=== PATIENT | male | born 1965 | race Caucasian/White ===

== ENCOUNTER → 2017-09-26 | Outpatient (CLI) | payer BC ==
--- NOTE | 2017-09-26 11:38 | PN ---
PROGRESS NOTE DATE OF SERVICE: 09/26/2017 A 52-year-old gentleman who has been [facility] in [facility] for treatment of severe obstructive sleep apnea-hypopnea syndrome. Patient successfully continued to use his CPAP equipment with full-face mask, use it every night without problems. No snoring with the machine. [place] Sleepiness Scale is 10. MEDICATIONS: Metformin, lisinopril, hydrochlorothiazide, Bydureon injections for diabetes. I checked the patient's CPAP unit, usage 29/30 nights for the last month, more than 4 hours. Average usage is 5.2 hours. CPAP pressure is 12 cm of water. Leak is up to 32 L/minute. Apnea-hypopnea index is only 0.9, which is in perfect range. PHYSICAL EXAM: Patient in no distress. BP 132/93, HR 85, RR 16, height 71-1/2, weight 301.6, temperature 97.7, BMI 41.3, oxygen saturation at room air 97%. Patient has about the same weight as one year ago. OROPHARYNX: Extremely low position of soft palate. Neck Supple, no JVD. Thyroid is not palpable. LUNGS Clear to percussion and to auscultation. Good air exchange. No wheezing or rhonchi. HEART S1, S2 regular. No murmurs, gallops, or rubs. EXTREMITIES No clubbing or cyanosis. 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 Cranial nerves 2 to 7 intact. There is no fasciculation or atrophy. noted. No focal deficits observed. IMPRESSION: 1. Severe obstructive sleep apnea-hypopnea syndrome, apnea-hypopnea index of 47.9, on full control with CPAP at 15 cm of water. Patient demonstrated good compliance with treatment, benefitting from treatment. 2. Obesity. 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 4. Hypertension. 5. Diabetes. 6. Status post vasectomy. PLAN: 1. Continue treatment with CPAP every night. 2. Losing weight. 3. Sleep hygiene with regular time in bed for at least 8 hours. 4. No driving if feeling any sleepiness. 5. Prescription for all necessary CPAP supplies including mask, tube, filters. Patient has to replace his mask. Thank you very much for allowing me to participate in the management of your patient. Sincerely, Kenneth Guerra MD, PhD, FAASM Diplomat of [place] [place] [employer] Facilities Project Manager of [facility] [place] [id number] / KALLIN: [phone] /
== END ==
LOC: SLEEP 10:01
PROVIDERS: ATTEND Internal Medicine
DX: G47.33 Obstructive sleep apnea (adult) (pediatric) (principal); E66.9 Obesity, unspecified; I10 Essential (primary) hypertension; E11.9 Type 2 diabetes mellitus without complications; Z98.52 Vasectomy status; Z79.899 Other long term (current) drug therapy; Z79.84 Long term (current) use of oral hypoglycemic drugs

== ENCOUNTER 2018-08-27 20:09 | Emergency (ER) | payer BC ==
[2018-08-27 20:36] VITALS: BP 141/91; PULSE 95; RESP 18; TEMP 98.7
--- NOTE | 2018-08-27 21:55 | ED ---
Back Pain HPI - General Source: patient, RN notes reviewed Mode of arrival: ambulatory Limitations: no limitations <Colleen Mullen - Last Filed: 08/27/18 22:17> <Anastacia Issa - Last Filed: 08/27/18 23:17> - General Chief Complaint: Back Pain/Injury Stated Complaint: back & leg pain Time Seen by Provider: 08/27/18 20:52 - History of Present Illness Initial Comments: This is a 52-year-old male who presents to the emergency department with chief complaint of low back pain. Patient states that 3 weeks ago he felt a "twinge" in his right lower back. He states that the pain has progressively worsened and he is experiencing sharp shooting pain down the right anterior thigh to his foot. He states he believes it is his sciatica flaring up. He was evaluated at a walk-in clinic and was started on a Medrol dosepak approximately 2-3 weeks ago. Patient reports following up at an urgent care yesterday and was prescribed ibuprofen and [place]. He reports the pain medication has not relieved his pain. X-rays were performed yesterday and no abnormalities were demonstrated. He states today the pain has been ranging from 8/10-10/10. He states the only relief he receives is when he lies on his back. States he does have an appointment with [facility] scheduled for Sunday. Denies saddle paresthesias or loss of bladder or bowel function. Denies falls, injuries or trauma. Denies recent fevers or chills, chest pain or shortness breath, abdominal pain, nausea or vomiting. (Colleen Mullen) - Related Data Home Medications Medication Instructions Recorded Confirmed Exenatide Microspheres [Bydureon] 2 mg SQ FR 08/27/18 08/27/18 HYDROcodone/APAP 5-325MG [[place] 1 tab PO Q6HR PRN 08/27/18 08/27/18 5-325] Hydrochlorothiazide [Hydrodiuril] 25 mg PO DAILY 08/27/18 08/27/18 Ibuprofen [Motrin] 800 mg PO TID PRN 08/27/18 08/27/18 Lisinopril [Zestril] 20 mg PO DAILY 08/27/18 08/27/18 PARoxetine [Paxil] 10 mg PO DAILY 08/27/18 08/27/18 metFORMIN HCL [Glucophage] 500 mg PO BID 08/27/18 08/27/18 Allergies Allergy/AdvReac Type Severity Reaction Status Date / Time No Known Allergies Allergy Verified 08/27/18 21:00 Review of Systems ROS Other: All systems not noted in ROS Statement are negative. <Colleen Mullen - Last Filed: 08/27/18 22:17> ROS Other: All systems not noted in ROS Statement are negative. <Anastacia Issa - Last Filed: 08/27/18 23:17> ROS Statement: Those systems with pertinent positive or pertinent negative responses have been documented in the HPI. Past Medical History Past Medical History: Diabetes Mellitus, Hypertension History of Any Multi-Drug Resistant Organisms: None Reported Past Surgical History: Tonsillectomy Additional Past Surgical History / Comment(s): vasectomy, Past Psychological History: No Psychological Hx Reported Smoking Status: Former smoker Past Alcohol Use History: Rare Past Drug Use History: None Reported <Colleen Mullen - Last Filed: 08/27/18 22:17> General Exam Limitations: no limitations Back exam: Present: normal inspection, full ROM, tenderness (Tenderness on palpation of right SI joint.). Absent: paraspinal tenderness, vertebral tenderness <Colleen Mullen - Last Filed: 08/27/18 22:17> <Anastacia Issa - Last Filed: 08/27/18 23:17> - General Exam Comments Initial Comments: General: Awake and alert, well-developed; in no apparent distress. Lying comfortably on ED stretcher. HEENT: Head atraumatic, normocephalic. Pupils are equal, round and reactive to light. Extraocular movements intact. Oropharynx moist without erythema or exudate. Neck: Supple. Normal ROM. Cardiovascular: Regular rate and rhythm. No murmurs, rubs or gallops. Chest symmetrical. Respiratory: Lungs clear to auscultation bilaterally. No wheezes, rales or rhonchi. Normal respiratory effort with no use of accessory muscles. Musculoskeletal: Normal ROM, no tenderness bilateral upper and lower extremities. Ambulating normally. Skin: [place], warm and dry without rashes or lesions. Neurological: Alert and oriented x3. CN II-XII grossly intact. Speech is fluent and answers are appropriate. No focal neuro deficits. Psychiatric: Normal mood and affect. No overt signs of depression or anxiety noted. (Colleen Mullen) Vital Signs 08/27/18 20:32 Temperature 98.7 F Pulse Rate 95 Respiratory 18 Rate Blood Pressure 141/91 O2 Sat by Pulse 100 Oximetry Medical Decision Making <Colleen Mullen - Last Filed: 08/27/18 22:17> <Anastacia Issa - Last Filed: 08/27/18 23:17> - Medical Decision Making This is a 52-year-old male who presents to the emergency department with chief complaint of right low back pain. Patient reports a history of sciatica. He states for the past 3 weeks he has had progressive worsening of right low back pain with radiation down the right leg. Patient states he has been on a Medrol Dosepak, has had a cortisone injection and is now taking [place] and ibuprofen. Patient reports no improvement in symptoms. He reports x-rays were obtained yesterday which revealed no acute abnormalities. He denies any falls, injuries or trauma. On physical examination, there is tenderness to the right SI joint. He is neurovascularly intact. He is ambulating normally. Case was discussed with attending physician, Dr. Issa. No additional treatment is warranted at this time as patient was recently on a course of steroids and is already prescribed narcotics and an anti-inflammatory. Patient is instructed to follow up with [facility] on Sunday as scheduled. His vital signs have been stable and he is in no acute distress. He'll be discharged home at this time. He is in agreement and voices understanding. All questions were answered. (Colleen Mullen) I was available for consultation in the emergency department. The history and physical exam were done by the midlevel provider. I was consulted for this patient's care. I reviewed the case with the midlevel provider and based on their presentation of the patient, I agree with the assessment, medical decision making and plan of care as documented. (Anastacia Issa) Disposition Is patient prescribed a controlled substance at d/c from ED?: No Time of Disposition: 21:56 <Colleen Mullen - Last Filed: 08/27/18 22:17> <Anastacia Issa - Last Filed: 08/27/18 23:17> Clinical Impression: Lumbar radiculopathy Disposition: HOME SELF-CARE Condition: Good Instructions: Lumbar Radiculopathy (ED) Additional Instructions: Please follow-up with [facility] as scheduled. Please follow up with primary care provider within 1-2 days. Return to emergency department if symptoms should worsen or any concerns arise. Referrals: Chance Umana DO [Primary Care Provider] - 1-2 days
== END 2018-08-27 22:00 | disposition home or self-care (01) ==
LOC: EC 20:09
DX: M54.16 Radiculopathy, lumbar region (principal); M54.41 Lumbago with sciatica, right side; E11.9 Type 2 diabetes mellitus without complications; I10 Essential (primary) hypertension; Z87.891 Personal history of nicotine dependence; Z79.84 Long term (current) use of oral hypoglycemic drugs; Z79.899 Other long term (current) drug therapy
CPT/HCPCS: 99283

== ENCOUNTER → 2018-10-30 | Outpatient (CLI) | payer BC ==
--- NOTE | 2018-10-30 18:38 | PN ---
PROGRESS NOTE DATE OF SERVICE: 10/30/2018 53-year-old gentleman who has been followed in [facility] for treatment of obstructive sleep apnea-hypopnea syndrome. Patient successfully continued to use his CPAP unit without any problems. No snoring with his machine according to his . [place] Sleepiness Scale is 10. I checked CPAP unit. CPAP pressure is 12 cm of water. Usage is 22 out of 30 nights for more than 4 hours, which is normal compliance. Average usage is 4.7 hours. Otherwise, patient using machine every night 30 out of 30 nights. Leak is 34 L/minute which is borderline. Apnea-hypopnea index only 1.8, which is absolutely normal range. CURRENT MEDICATIONS: Metformin, lisinopril, hydrochlorothiazide, injections for diabetes. PHYSICAL EXAM: Patient in no distress. BP 133/80, HR 110, RR 18, height 71.5, weight 283.0, body mass index 38.9. The patient has lost 18 pounds since previous visit. Oropharynx extremely low position of soft palate. ABDOMEN: Obese. Neck Supple, no JVD. Thyroid is not palpable. LUNGS Clear to percussion and to auscultation. Good air exchange. No wheezing or rhonchi. HEART S1, S2 regular. No murmurs, gallops, or rubs. ABDOMEN: Obese. Soft and nontender. Bowel sounds are present. No organomegaly appreciated. EXTREMITIES No clubbing or cyanosis. 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 Cranial nerves 2 to 7 intact. There is no fasciculation or atrophy. noted. No focal deficits observed. IMPRESSION: 1. Obstructive sleep apnea-hypopnea syndrome. Full control with CPAP. Patient demonstrated great compliance with treatment benefitting from treatment. 2. Obesity, patient lost 13 pounds since previous visit. 3. Hypertension. 4. Diabetes mellitus. 5. 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 PLAN: 1. Continue treatment with CPAP every night. 2. Losing weight. 3. Sleep hygiene with regular time in bed for at least 8 hours. 4. No driving if feeling sleepiness. 5. We will maintain all necessary prescriptions for CPAP supplies including mask, tube, filters. Thank you very much for allowing me to participate in management of your patient. Sincerely, Kenneth Guerra MD, PhD, FAASM Diplomat of [place] [employer] Welder Apprentice [employer] of [facility] [place] MMODL / KALLIN: [phone] /
== END | disposition home or self-care (01) ==
LOC: SLEEP 16:50
PROVIDERS: ATTEND Internal Medicine
DX: G47.33 Obstructive sleep apnea (adult) (pediatric) (principal); I10 Essential (primary) hypertension; E11.9 Type 2 diabetes mellitus without complications; E66.9 Obesity, unspecified; Z68.38 Body mass index [BMI] 38.0-38.9, adult; Z99.89 Dependence on other enabling machines and devices; Z79.84 Long term (current) use of oral hypoglycemic drugs; Z79.899 Other long term (current) drug therapy

== ENCOUNTER → 2018-11-27 | Outpatient (CLI) | payer BC ==
[2018-11-27 11:49] LABS: Appearance,Urine Clear (Clear); Bilirubin,Urine Negative (Negative); Blood,Urine Negative (Negative); Color,Urine Yellow; Glucose,Urine (UA) Negative (Negative); Ketones,Urine Negative (Negative); Leukocyte Esterase,Urine Negative (Negative); Nitrite,Urine Negative (Negative); Protein,Urine Negative (Negative); Specific Gravity,Urine 1.015 (1.001-1.035); Urobilinogen,Urine <2.0 mg/dL (<2.0)
== END ==
LOC: LABPAT 10:10
PROVIDERS: ATTEND Orthopaedic Surgery Orthopaedic Surgery of the Spine
DX: Z01.812 Encounter for preprocedural laboratory examination (principal); M51.26 Other intervertebral disc displacement, lumbar region
CPT/HCPCS: 81003

== ENCOUNTER 2018-12-04 06:03 | Day surgery (SDC) | payer BC ==
[2018-11-28 09:15] VITALS: BMI 37.3
[~2018-12-04 06:03] MED LIST: BACITRACIN 50,000 UNIT, POLYMYXIN B 500,000 UNIT in SODIUM CHLORIDE 0.9% IRRIGATIO 1,00... IRRIGATION ONE; HYDROmorphone 0.5 MG/0.5 ML SYRINGE IVP PRN; LACTATED RINGERS 1,000 ML IV SCH; LIDOCAINE 1% 20 ML VIAL (10MG/ML) FOR IV START INTRADERMA PRN; ONDANSETRON 4 MG/2 ML VIAL IVP ONE
[2018-12-04 06:53] LABS: Glucose,Whole Blood 132 mg/dL (75-99)
[2018-12-04] MEDS ORDERED: SUCCINYLCHOLINE CHLORIDE VIAL 200 MG/10 ML VIAL IV ONE (08:00)
[2018-12-04] MEDS ORDERED: ROCURONIUM BROMIDE 10 MG/ML 10 ML VIAL IV ONE (08:00)
[2018-12-04] MEDS ORDERED: ePHEDrine SULFATE/0.9% NACL/PF 50 MG/5 ML SYRINGE IV ONE (08:00)
[2018-12-04] MEDS ORDERED: LIDOCAINE 1% INJ 10MG/ML (20 ML MDV) ONE (08:00)
[2018-12-04] MEDS ORDERED: MIDAZOLAM 2 MG/2 ML VIAL ONE (08:00)
[2018-12-04] MEDS ORDERED: KETOROLAC 30 MG/ML 1 ML VIAL ONE (08:00)
[2018-12-04] MEDS ORDERED: PROPOFOL 10 MG/ML 20 ML VIAL IV ONE (08:00)
[2018-12-04] MEDS ORDERED: fentaNYL (PF) 50 MCG/ML 2 ML AMP ONE (08:00)
[2018-12-04] MEDS ORDERED: HYDROmorphone (PF) 1 MG/ML ONE (08:00)
[2018-12-04] MEDS ORDERED: BACITRACIN 50,000 UNIT, POLYMYXIN B 500,000 UNIT in SODIUM CHLORIDE 0.9% IRRIGATIO 1,00... IRRIGATION ONE (08:23)
[2018-12-04] MEDS ORDERED: THROMBIN (BOVINE) 5,000 UNIT VIAL TOPICAL ONE (08:24)
[2018-12-04] MEDS ORDERED: BUPIVACAINE (PF) 0.25% 30 ML VIAL SQ ONE (08:24)
[2018-12-04] MEDS ORDERED: LIDOCAINE 0.5%-EPI 1:200,000 50 ML VIAL SQ ONE ×2 (08:24→08:35)
[2018-12-04] MEDS ORDERED: GELATIN SPONGE,ABSORB (LARGE) 1 EACH SPONGE TOPICAL ONE (08:24)
[2018-12-04] MEDS ORDERED: LACTATED RINGERS 1,000 ML IV ONE (09:01)
--- NOTE | 2018-12-04 09:08 | FL ---
Fluoroscopy INDICATION: Pain FINDINGS: Fluoroscopy time: 4 seconds. Images obtained: 1. IMPRESSIONS: 1. Documentation of fluoroscopy.
[2018-12-04] MEDS ORDERED: methylPREDNISolone ACETATE 80 MG/ML 1 ML VIAL INJ ONE (09:15)
[2018-12-04] MEDS ORDERED: HYDROmorphone 2 MG/ML 1 ML SYRINGE IVP PRN (09:54)
[2018-12-04] MEDS ORDERED: IBUPROFEN 600 MG TAB PO PRN (09:54)
[2018-12-04] MEDS ORDERED: ONDANSETRON 4 MG/2 ML VIAL IVP PRN (09:54)
[2018-12-04] MEDS ORDERED: BENZOCAINE/MENTHOL LOZENG 1 EACH LOZENGE MUCOUS MEM PRN (09:54)
[2018-12-04] MEDS ORDERED: KETOROLAC 30 MG/ML 1 ML VIAL IVP PRN (09:54)
[2018-12-04] MEDS ORDERED: HYDROcodone/APAP 5-325MG 1 EACH TAB PO PRN ×2 (09:54)
[2018-12-04] MEDS ORDERED: HYDROmorphone 0.5 MG/0.5 ML SYRINGE IVP PRN ×3 (09:54)
[2018-12-04] MEDS ORDERED: SODIUM CHLORIDE 0.9% 1,000 ML IV SCH (10:00)
--- NOTE | 2018-12-04 10:03 | P.OP ---
Date of Procedure: 12/04/18 Preoperative Diagnosis: Far lateral disc herniation L4 5 Right lower extremity radiculopathy with weakness Low back pain Degenerative disc disease Postoperative Diagnosis: Same Anesthesia: GETA Pathology: none sent Condition: stable Disposition: PACU Description of Procedure: BRIEF OPERATIVE NOTE Preoperative Diagnosis:Far lateral disc herniation L4 5 Right lower extremity radiculopathy with weakness Low back pain Degenerative disc disease Postoperative Diagnosis: Procedure: Laminectomy and decompression L4 5 Discectomy for decompression L4 5 Use of fluoroscopic guidance Surgeon: Dr. Stearns Pocket Marker: Enrique Matias is present throughout the entire the case persistence during positioning, dissection, exposure, visualization, and all crucial elements of the case as well as closure. Anesthesia: General anesthesia Estimated blood loss: Approximately 50 mL Complications: None apparent Components implanted: None Disposition: To recovery room in good stable condition. OPERATIVE INDICATIONS The patient has been having issues in their lower back and lower extremities. He had a number of degenerative disc changes there was also found have a far lateral disc herniation at L4 5 causing compression of the exiting nerve root. He is having severe symptoms over his right side that correlated well with his imaging findings. He was having some weakness in his lower extremity and significant debility due to the herniation. He had undergone interventional pain management various injections was not having lasting improvement despite this treatment. The patient has been through conservative treatment. We discussed various treatment options including surgery, and the patient wishes to proceed with surgery We discussed the risk, patient's alternatives and benefits of surgery including but not limited to, risk of bleeding risk of infection, risk of need for further surgery, risk of decreased, loss of motion, loss of function, nerve damage, paralysis, heart attack, blindness and . OPERATIVE SUMMARY After discussing all the risks, patient alternatives and benefits at length, the patient elected to proceed with surgical intervention, signed informed consent, and presented for their procedure. The patient was seen and examined in the preoperative holding area and the surgical site was marked. The patient was given antibiotics and brought to the operating room. The patient was sedated and intubated by anesthesia in standard fashion. The patient was positioned on to the operating room table in a prone position on the appropriate frame which was well-padded and well molded. We were careful to pad any bony prominences and pressure points. We were careful to maintain the patient's cervical spine and good neutral alignment and position throughout. The patient was prepped and draped in a normal standard fashion. An appropriate timeout and keystone protocol performed. We were able to proceed with the surgery. Fluoroscopy was utilized to establish the appropriate level of L4 5. The local wound area was infiltrated with local anesthetic. An incision was made at the midline longitudinally over the appropriate levels at L4 5. Dissection was taken down subcutaneously to the level of the fascia which was split midline. Dissection was taken over the lamina. Intraoperative fluoroscopy was taken which showed a marker at the appropriate level at L4 5. With the appropriate level positively confirmed, we were able to proceed with laminectomy. The wound was copiously irrigated and suctioned dry as had been done periodically throughout the case. I performed a laminectomy with a combination of curettes and a high-speed bur and Kerrison rongeurs. A small medial facetectomy was performed again further access. I did have to extend the facetectomy somewhat undermining the facet to get to the far lateral space. A partial foraminotomy was also performed. Portions of the ligamentum flavum were taken down to expose the dura and traversing nerve root. I was able to mobilize the traversing nerve root and gain access to the disc space. Note was made of obvious compression from the disc. Protecting the soft tissue structures, a small annulotomy was established. I was able to perform discectomy and remove any extruded disc fragments and any loose fragments from within the disc itself. I took great care to extend laterally to remove the lateral disc herniation and open up the space at the neural foramen. There is some disc desiccation noted. I tried to preserve the disc annulus that appeared stable. There were no further extruded fragments noted. There is no evidence of dural tear or leak. Good hemostasis maintained. The wound was copiously irrigated and suctioned dry. Good decompression and discectomy was noted. We were able to proceed with closure. The fascia was closed for a watertight closure. The subcuticular tissue was closed with absorbable suture. The wound was cleaned and dried and dressed with the appropriate dressing. The drapes were broken down. The patient was gently rolled back onto their hospital bed being careful to maintain their cervical spine and good neutral alignment and position. They were woken up by anesthesia, extubated, and brought to the recovery room in good stable condition. The patient will be admitted to the hospital for observation and for appropriate postoperative care, medical management and monitoring. We will continue to follow them closely about the postoperative course.
[2018-12-04 10:14] VITALS: TEMP 97.2
[2018-12-04 10:24] LABS: Glucose,Whole Blood 161 mg/dL (75-99)
[2018-12-04] MEDS ORDERED: HYDROcodone/APAP 10-325MG 1 EACH TAB PO ONE (11:08)
[2018-12-04 11:40] VITALS: BP 117/83; PULSE 85; RESP 16
[2018-12-04] MEDS ORDERED: ceFAZolin 1,000 MG/50 ML BAG (PMX) IVPB ONE (11:41)
[2018-12-04] MEDS ORDERED: ceFAZolin 3 GM in SODIUM CHLORIDE 0.9% 100 ML IVPB SCH (16:00)
== END 2018-12-04 12:35 | disposition home or self-care (01) ==
LOC: OR 06:03
PROVIDERS: ATTEND Orthopaedic Surgery Orthopaedic Surgery of the Spine
DX: M51.16 Intervertebral disc disorders with radiculopathy, lumbar region (principal); M51.17 Intervertebral disc disorders with radiculopathy, lumbosacral region; I10 Essential (primary) hypertension; E11.9 Type 2 diabetes mellitus without complications; E78.5 Hyperlipidemia, unspecified; E66.01 Morbid (severe) obesity due to excess calories; Z68.37 Body mass index [BMI] 37.0-37.9, adult; D69.6 Thrombocytopenia, unspecified; G47.00 Insomnia, unspecified; G47.33 Obstructive sleep apnea (adult) (pediatric); K76.89 Other specified diseases of liver; F32.9 Major depressive disorder, single episode, unspecified; Z79.84 Long term (current) use of oral hypoglycemic drugs; Z79.891 Long term (current) use of opiate analgesic; Z79.899 Other long term (current) drug therapy; Z87.891 Personal history of nicotine dependence; Z86.010 Personal history of colon polyps; Z87.442 Personal history of urinary calculi; Z82.49 Family history of ischemic heart disease and other diseases of the circulatory system
CPT/HCPCS: 97161; 72020; 63030; J2250; J0330; J1040; J0690 ×2; J2405; J2001; J3010; J1885; J1170; J2704

== ENCOUNTER 2019-10-08 07:17 | Day surgery (SDC) | payer BC ==
[2019-10-06 09:35] VITALS: BMI 37.3
[~2019-10-08 07:17] MED LIST changes: -BACITRACIN 50,000 UNIT, POLYMYXIN B 500,000 UNIT in SODIUM CHLORIDE 0.9% IRRIGATIO 1,00... IRRIGATION ONE; -HYDROmorphone 0.5 MG/0.5 ML SYRINGE IVP PRN; -ONDANSETRON 4 MG/2 ML VIAL IVP ONE
[2019-10-08 07:46] VITALS: TEMP 97
[2019-10-08 08:00] LABS: Glucose,Whole Blood 124 mg/dL (75-99)
[2019-10-08] MEDS ORDERED: PROPOFOL 10 MG/ML 20 ML VIAL IV ONE (08:02)
--- NOTE | 2019-10-08 08:25 | P.GSHP ---
History of Present Illness H&P Date: 10/08/19 CHIEF COMPLAINT: Colon screen HISTORY OF PRESENT ILLNESS: The patient is a 54-year-old male who presents for colon screen. Lower endoscopy was offered for further evaluation and management. PAST MEDICAL HISTORY: Please see list. PAST SURGICAL HISTORY: Please see list. MEDICATIONS: Please see list. ALLERGIES: Please see list. SOCIAL HISTORY: No illicit drug use FAMILY HISTORY: No reports of Crohn disease or ulcerative colitis. REVIEW OF ORGAN SYSTEMS: CONSTITUTIONAL: No reports of fevers or chills. PHYSICAL EXAM: VITAL SIGNS: Stable GENERAL: Well-developed pleasant in no acute distress. HEENT: No scleral icterus. Extraocular movements grossly intact. Moist buccal mucosa. NECK: Supple without lymphadenopathy. CHEST: Unlabored respirations. Equal bilateral excursions. CARDIOVASCULAR: Regular rate and rhythm. Distal 2+ pulses. ABDOMEN: Soft, nontender, nondistended. MUSCULOSKELETAL: No clubbing, cyanosis, or edema. ASSESSMENT: 1. Colon screen. PLAN: 1. Recommend proceeding with a lower endoscopy Past Medical History Past Medical History: Diabetes Mellitus, Hypertension History of Any Multi-Drug Resistant Organisms: None Reported Past Surgical History: Back Surgery, Tonsillectomy Additional Past Surgical History / Comment(s): vasectomy, discectomy of back Past Anesthesia/Blood Transfusion Reactions: No Reported Reaction Smoking Status: Former smoker - Past Family History Father Family Medical History: Myocardial Infarction ([place]) Medications and Allergies Home Medications Medication Instructions Recorded Confirmed Type Hydrochlorothiazide [Hydrodiuril] 25 mg PO DAILY 08/27/18 10/08/19 History Lisinopril [Zestril] 20 mg PO DAILY 08/27/18 10/08/19 History PARoxetine [Paxil] 20 mg PO DAILY 08/27/18 10/08/19 History metFORMIN HCL [Glucophage] 500 mg PO BID 08/27/18 10/08/19 History Ascorbic Acid [Vitamin C] 500 mg PO DAILY 11/28/18 10/08/19 History Cholecalciferol [Vitamin D3] 1,000 unit PO DAILY 11/28/18 10/08/19 History Cyanocobalamin (Vitamin B-12) 1,000 mcg PO DAILY 10/06/19 10/08/19 History [Vitamin B-12] Dulaglutide [Trulicity] 1.5 mg SQ FR 10/06/19 10/08/19 History Allergies Allergy/AdvReac Type Severity Reaction Status Date / Time No Known Allergies Allergy Verified 10/08/19 07:47 Surgical - Exam Vital Signs Temp Pulse Resp BP Pulse Ox 97.0 F L 86 17 130/75 96 10/08/19 07:45 10/08/19 07:45 10/08/19 07:45 10/08/19 07:45 10/08/19 07:45 Results - Labs Abnormal Lab Results - Last 24 Hours (Table) 10/08/19 Range/Units 07:54 POC Glucose (mg/dL) 124 H (75-99) mg/dL
--- NOTE | 2019-10-08 08:28 | P.PCN ---
Date of Procedure: 10/08/19 Description of Procedure: PREOPERATIVE DIAGNOSIS: Personal history of colon polyps Colonoscopy screening. POSTOPERATIVE DIAGNOSIS: Personal history of colon polyps Colonoscopy screening. External hemorrhoids, grade 2 OPERATION: Colonoscopy to the ileocecal valve and appendiceal orifice. SURGEON: Renetta Walsh MD. ANESTHESIA: MAC. INDICATIONS: The patient is a 54-year-old female who presents for colonoscopy screening. Last colonoscopy 3 years ago. Benefits and risks were described and informed consent was obtained. DESCRIPTION OF PROCEDURE: The patient had undergone Suprep. He had been brought into the operating room and laid in the left lateral decubitus position. After adequate intravenous sedation, the rectum was examined with 2% lidocaine jelly. External hemorrhoids were encountered. The rectal tone was within normal limits. No lesions were palpated in the rectal vault. An Olympus colonoscope was advanced until the ileocecal valve and appendiceal orifice were clearly viewed. The prep was good. The scope was removed with visualization of each mucosal fold. No scattered diverticulosis was encountered. No colonic polyps were found. No evidence of focal colitis was found. Retroflexion of the scope demonstrated grade 1 internal hemorrhoids without active bleeding or inflammation. The colon was desufflated. The patient had tolerated the procedure well. Withdrawal time was over 6 minutes. FINDINGS: Aronchick preparation quality scale 2 (1-5) Internal hemorrhoids, grade 1 External prolapsed hemorrhoid, grade 2 No arteriovenous malformations. No adenomatous polyps. No focal colitis. RECOMMENDATIONS: Lower endoscopy in 5 years, 2023 Plan - Discharge Summary Discharge Rx Participant: No New Discharge Prescriptions: No Action metFORMIN HCL [Glucophage] 500 mg PO BID PARoxetine [Paxil] 20 mg PO DAILY Lisinopril [Zestril] 20 mg PO DAILY Hydrochlorothiazide [Hydrodiuril] 25 mg PO DAILY Cholecalciferol [Vitamin D3] 1,000 unit PO DAILY Ascorbic Acid [Vitamin C] 500 mg PO DAILY Dulaglutide [Trulicity] 1.5 mg SQ FR Cyanocobalamin (Vitamin B-12) [Vitamin B-12] 1,000 mcg PO DAILY Discharge Medication List Hydrochlorothiazide [Hydrodiuril] 25 mg PO DAILY 08/27/18 [History] Lisinopril [Zestril] 20 mg PO DAILY 08/27/18 [History] PARoxetine [Paxil] 20 mg PO DAILY 08/27/18 [History] metFORMIN HCL [Glucophage] 500 mg PO BID 08/27/18 [History] Ascorbic Acid [Vitamin C] 500 mg PO DAILY 11/28/18 [History] Cholecalciferol [Vitamin D3] 1,000 unit PO DAILY 11/28/18 [History] Cyanocobalamin (Vitamin B-12) [Vitamin B-12] 1,000 mcg PO DAILY 10/06/19 [Hist ory] Dulaglutide [Trulicity] 1.5 mg SQ FR 10/06/19 [History] Follow up Appointment(s)/Referral(s): Renetta Walsh MD [STAFF PHYSICIAN] - As Needed Patient Instructions/Handouts: *Surgery [facility] - (Anesthesia) Endoscopy Discharge Instructions Activity/Diet/Wound Care/Special Instructions: Repeat colonoscopy in 5 years, 2023
[2019-10-08 08:30] VITALS: RESP 16
[2019-10-08 08:46] VITALS: BP 122/67; PULSE 55
== END 2019-10-08 09:22 | disposition home or self-care (01) ==
LOC: ORWHC2ENDO 07:17
PROVIDERS: ATTEND Surgery Plastic and Reconstructive Surgery
DX: Z12.11 Encounter for screening for malignant neoplasm of colon (principal); K64.0 First degree hemorrhoids; K64.1 Second degree hemorrhoids; I10 Essential (primary) hypertension; E11.9 Type 2 diabetes mellitus without complications; G47.33 Obstructive sleep apnea (adult) (pediatric); F32.9 Major depressive disorder, single episode, unspecified; E66.01 Morbid (severe) obesity due to excess calories; Z90.89 Acquired absence of other organs; Z98.890 Other specified postprocedural states; Z98.52 Vasectomy status; Z87.891 Personal history of nicotine dependence; Z79.84 Long term (current) use of oral hypoglycemic drugs; Z79.899 Other long term (current) drug therapy; Z82.49 Family history of ischemic heart disease and other diseases of the circulatory system; Z87.19 Personal history of other diseases of the digestive system; Z86.010 Personal history of colon polyps; Z99.89 Dependence on other enabling machines and devices; Z68.37 Body mass index [BMI] 37.0-37.9, adult
CPT/HCPCS: 45378; J2704